=== PATIENT | female | born 1965 | race Caucasian/White ===

== ENCOUNTER 2018-02-04 14:21 | Outpatient (CLI) | payer BC | END 2018-02-04 14:22 | disposition home or self-care (01) | LOC: BICMAMMO 14:21 | PROVIDERS: ATTEND Obstetrics & Gynecology | DX: Z12.31 Encounter for screening mammogram for malignant neoplasm of breast (principal); Z80.3 Family history of malignant neoplasm of breast | CPT/HCPCS: 77063; 77067 ==

== ENCOUNTER 2019-02-14 08:05 | Outpatient (CLI) | payer BC ==
--- NOTE | 2019-02-14 08:39 | MMO ---
Bilateral MAMMO Bilat Screen [facility]. CLINICAL HISTORY: Patient is 53 years old and is seen for screening. The patient has the following family history of breast cancer: maternal aunt. The patient has no personal history of cancer. The patient has a history of bilateral Implants in 2010 - benign. VIEWS: The views performed were: bilateral craniocaudal; bilateral mediolateral oblique; and bilateral Implant displaced with tomosynthesis. FILMS COMPARED: The present examination has been compared to prior imaging studies performed at [facility] [place] on 11/19/2016 and 02/04/2018, and at [facility] on 04/26/2013, 06/19/2014 and 06/24/2015. MAMMOGRAM FINDINGS: There are scattered fibroglandular densities. Finding 1: Normal implants are present.. Finding 2: There are stable benign appearing calcifications seen in both breasts. There are no suspicious masses, suspicious calcifications, or new areas of architectural distortion. IMPRESSION: THERE IS NO MAMMOGRAPHIC EVIDENCE OF MALIGNANCY. A ROUTINE FOLLOW-UP MAMMOGRAM IN 1 YEAR IS RECOMMENDED. THE RESULTS OF THIS EXAM WERE SENT TO THE PATIENT. ACR BI-RADS Category 2 - Benign finding MAMMOGRAPHY NOTE: 1. A negative mammogram report should not delay a biopsy if a dominant of clinically suspicious mass is present. 2. Approximately 10% to 15% of breast cancers are not detected by mammography. 3. Adenosis and dense breasts may obscure an underlying neoplasm.
== END 2019-02-14 08:06 | disposition home or self-care (01) ==
LOC: BICMAMMO 08:05
PROVIDERS: ATTEND Obstetrics & Gynecology
DX: Z12.31 Encounter for screening mammogram for malignant neoplasm of breast (principal); Z80.3 Family history of malignant neoplasm of breast; Z98.82 Breast implant status
CPT/HCPCS: 77063; 77067

== ENCOUNTER 2023-06-18 14:16 | Outpatient (CLI) | payer BC | END 2023-06-18 14:17 | disposition home or self-care (01) | LOC: BICMRI 14:16 | PROVIDERS: ATTEND Family Medicine | DX: M12.551 Traumatic arthropathy, right hip (principal) ==

== ENCOUNTER 2023-10-27 12:39 | Outpatient (CLI) | payer BC ==
[2023-10-27] MEDS ORDERED: Iopamidol 370 76% 100 ML VIAL ONE (13:36)
[2023-10-27] MEDS ORDERED: GASTROGRAFIN 30 ML BOT ONE (13:36)
== END 2023-10-27 12:40 | disposition home or self-care (01) ==
LOC: CT 12:39
PROVIDERS: ATTEND Internal Medicine
DX: R10.9 Unspecified abdominal pain (principal)
CPT/HCPCS: 74177; Q9963; Q9967

== ENCOUNTER 2023-12-09 12:00 | Outpatient (CLI) | payer BC | END 2023-12-09 12:01 | disposition home or self-care (01) | LOC: SCSMRI 12:00 | PROVIDERS: ATTEND Internal Medicine | DX: R51.9 Headache, unspecified (principal) | CPT/HCPCS: 70553 ==